=== PATIENT | female | born 1975 | race Asian ===

== ENCOUNTER 2021-07-30 08:53 | Outpatient (CLI) | payer BC, SELFPAY ==
--- NOTE | ~2021-07-30 | MM_ITS ---
EXAMINATION: MM screening wilder BI w meri HISTORY: Screening mammogram TECHNIQUE: Craniocaudal and mediolateral oblique 3-D tomosynthesis images were obtained and synthetic 2-D images were generated. CAD analysis was submitted and interpreted. COMPARISON: No prior mammogram is available for comparison at this institution. BREAST PARENCHYMAL COMPOSITION: The breasts are extremely dense, which lowers the sensitivity of mamm ography. FINDINGS: There is no evidence of suspicious mass, calcification, or architectural distortion to sugg est malignancy in either breast. There has been no suspicious interval change. IMPRESSION: 1. No mammographic evidence of malignancy. 2. Recommend routine screening mammography in one year. BI-RADS Category 1: Negative Reviewed, dictated and finalized at location A.
== END 2021-07-30 08:54 | disposition home or self-care (01) ==
LOC: ANHIMG 08:55
PROVIDERS: PCP Emergency Medicine; Visit Provider Emergency Medicine
DX: Z12.31 Encounter for screening mammogram for malignant neoplasm of breast (principal)
CPT/HCPCS: 77063; 77067

== ENCOUNTER 2024-09-25 09:42 | Outpatient (CLI) | payer BC, SELFPAY ==
--- NOTE | ~2024-09-25 | MMUS_ITS ---
EXAMINATION: US breast BI complete, MM diagnostic wilder BI w meri HISTORY: Palpable left breast lump TECHNIQUE: Additional 3-D tomosynthesis images of the breasts were performed and synthetic 2-D images were generated. CAD analysis was submitted and interpreted. High resolution complete bilateral breas t ultrasound was performed. COMPARISON: Comparison to multiple prior studies sequentially, with oldest reviewed study dated 02/2015. BREAST PARENCHYMAL COMPOSITION: Dense: The breasts are extremely dense, which lowers the sensitivity of mammography. FINDINGS: MAMMOGRAPHIC FINDINGS: There are no suspicious masses, calcifications or architectural distortion in either breast to sugges t malignancy. There are benign-appearing bilateral breast calcifications. ULTRASOUND: Complete US of all 4 quadrants of the breast/s and retroareolar region was reviewed. Normal heterogen eous echotexture throughout the right breast without discrete mass. There are multiple isoechoic roun ded areas in the left breast which are obscured by dense fibroglandular tissue. Some of these areas c ontain internal calcifications. IMPRESSION: 1. Extremely dense breasts limits mammographic and sonographic sensitivity. Ill-defined isoechoic rou nd areas of altered echogenicity are present throughout the left breast which may represent normal ba ckground fibroglandular tissue, although further evaluation with MRI is recommended given the density of the breasts. 2. Recommend bilateral breast MRI with contrast. BI-RADS Category 0: Incomplete: Needs additional imaging evaluation. Reviewed, dictated and finalized at location B. K DROPPER IMPRESSION: 1. Extremely dense breasts limits mammographic and sonographic sensitivity. Ill -defined isoechoic round areas of altered echogenicity are present throughout t he left breast which may represent normal background fibroglandular tissue, alt selvin further evaluation with MRI is recommended given the density of the breas ts. 2. Recommend bilateral breast MRI with contrast. BI-RADS Category 0: Incomplete: Needs additional imaging evaluation.
== END 2024-09-25 09:43 | disposition home or self-care (01) ==
LOC: MICIMG 09:46
PROVIDERS: PCP Emergency Medicine; Visit Provider Emergency Medicine
DX: N63.20 Unspecified lump in the left breast, unspecified quadrant (principal); R92.8 Other abnormal and inconclusive findings on diagnostic imaging of breast
CPT/HCPCS: 76641; 77062; 77066; G0279